=== PATIENT | male | born 1990 | race Caucasian/White ===

== ENCOUNTER 2017-12-14 20:44 | Emergency (ER) | payer MEDICAID ==
[~2017-12-14] VITALS: Ht 177.8 cm; Wt 61.4 kg
[~2017-12-14 20:44] MED LIST: CEPH-357 PO; CLIN-79 PO
[2017-12-14 21:12] VITALS: BP 145/97
== END 2017-12-14 23:24 | disposition left against medical advice (07) ==
LOC: ER 20:44
DX: K59.00 Constipation, unspecified (principal); Z53.21 Procedure and treatment not carried out due to patient leaving prior to being seen by health care provider

== ENCOUNTER 2017-12-15 15:57 | Emergency (ER) | payer MEDICAID ==
[~2017-12-15] VITALS: Ht 177.8 cm; Wt 90.0 kg
[2017-12-15 16:38] LABS: BASOPHILS % (AUTO) 0.4 % (0-1); EOSINOPHILS # (AUTO) 0.3 X10'3 (0-0.9); EOSINOPHILS % (AUTO) 3.1 % (0-6); HEMATOCRIT 43.4 % (42.0-52.0); LYMPHOCYTES # (AUTO) 1.8 X10'3 (1.1-4.8); LYMPHOCYTES % (AUTO) 19.2 % (21-51); MEAN CORPUSCULAR HEMOGLOBIN 31.3 PG (27.0-31.0); MEAN CORPUSCULAR HGB CONC 34.5 % (33.0-36.5); MEAN CORPUSCULAR VOLUME 90.8 FL (78-98); MEAN PLATELET VOLUME 6.4 FL (7.4-10.4); NEUTROPHILS # (AUTO) 6.2 X10'3 (1.8-7.7); NEUTROPHILS % (AUTO) 66.3 % (42-75); PLATELET COUNT 292 X10'3 (140-440); RED BLOOD COUNT 4.78 X10'6 (4.70-6.10); RED CELL DISTRIBUTION WIDTH 13.4 % (11.5-14.5); WHITE BLOOD COUNT 9.3 X10'3 (4.5-11.0)
[2017-12-15 16:53] LABS: ALANINE AMINOTRANSFERASE 36 U/L (12-78); ALBUMIN 3.8 G/DL (3.4-5.0); ALKALINE PHOSPHATASE 127 IU/L (46-116); ANION GAP 9 (8-16); ASPARTATE AMINO TRANSFERASE 21 U/L (10-37); BILIRUBIN,TOTAL 0.3 MG/DL (0.1-1.0); BLOOD UREA NITROGEN 14 MG/DL (7-18); BUN/CREATININE RATIO 17.5 (5.4-32.0); CALCIUM 9.4 MG/DL (8.5-10.1); CHLORIDE 102 MMOL/L (99-107); GLUCOSE 104 MG/DL (70-104); LIPASE 207 U/L (73-393); SODIUM 139 MMOL/L (135-145); TOTAL CARBON DIOXIDE 28.3 MMOL/L (24-32); TOTAL PROTEIN 7.7 G/DL (6.4-8.2); eGFR > 90 ML/MIN
[2017-12-15 18:06] VITALS: BP 136/97
== END 2017-12-15 18:09 | disposition left against medical advice (07) ==
LOC: ER 15:58
DX: K59.00 Constipation, unspecified (principal); F12.10 Cannabis abuse, uncomplicated; Z98.890 Other specified postprocedural states; Z79.899 Other long term (current) drug therapy
CPT/HCPCS: 36415; 80053; 83690; 85025; 99284

== ENCOUNTER 2018-04-02 17:41 | Emergency (ER) | payer MEDICAID ==
[~2018-04-02] VITALS: Ht 304.8 cm; Wt 42.0 kg
[~2018-04-02 17:41] MED LIST changes: -CLIN-79 PO; +CLIN150C8 PO
[2018-04-02 18:01] VITALS: BP 119/78
== END 2018-04-02 22:24 | disposition left against medical advice (07) ==
LOC: ER 17:42
DX: Z00.8 Encounter for other general examination (principal); Z53.21 Procedure and treatment not carried out due to patient leaving prior to being seen by health care provider

== ENCOUNTER 2018-07-28 23:52 | Inpatient (IN) | payer MEDICAID ==
[~2018-07-28] VITALS: Ht 177.8 cm; Wt 47.0 kg
[2018-07-29] VITALS (18 sets, daily range): BP systolic 95–149; BP diastolic 54–85
[2018-07-29] MEDS ORDERED: normal saline 1000ML IV soln IVB ONE (01:50)
[2018-07-29] MEDS ORDERED: morphine 4 MG/ML inj SYRINge IV ONE (01:50)
[2018-07-29] MEDS ORDERED: NO HOME MEDS (01:52)
[2018-07-29] MEDS ORDERED: acetaminophen 650mg rectal suppository RC PRN (01:55)
[2018-07-29] MEDS ORDERED: magnesium hydroxide 30ml (MOM) UD suspension PO PRN (01:55)
[2018-07-29] MEDS ORDERED: morphine 2 MG/ML inj. syringe IV PRN ×2 (01:55)
[2018-07-29] MEDS ORDERED: ondansetron/PF 4mg/2ml inj IV PRN (01:55)
[2018-07-29] MEDS ORDERED: HYDROmorphone 1 mg/ml syringe IV PRN ×2 (01:55)
[2018-07-29] MEDS ORDERED: metoclopramide 5 mg/ml inj IV PRN (01:55)
[2018-07-29] MEDS ORDERED: bisacodyl 10mg suppository rectal RC PRN (01:55)
[2018-07-29] MEDS ORDERED: mag hydrox/Alum hydrox/simeth 30ml oral suspension PO PRN (01:55)
[2018-07-29] MEDS ORDERED: diphenhydrAMINE 50 mg/ml inj IV PRN (01:55)
[2018-07-29] MEDS ORDERED: acetaminophen 325mg tablet PO PRN ×2 (01:55)
[2018-07-29] MEDS ORDERED: HYDROcodone/acetaminophen 10/325mg tab PO PRN (01:55)
[2018-07-29] MEDS ORDERED: diphenhydrAMINE 25mg capsule PO PRN (01:55)
[2018-07-29] MEDS ORDERED: HYDROcodone/acetaminophen 5mg/325mg tablet PO PRN (01:55)
[2018-07-29] MEDS: diatr meglu/diatrizoate 30ml oral sol.-(3 dose) bottle PO SCH ×3 (02:02→05:16)
[2018-07-29 02:08] LABS: ALANINE AMINOTRANSFERASE 25 U/L (12-78); ALBUMIN 3.8 G/DL (3.4-5.0); ALBUMIN/GLOBULIN RATIO 1.2 (1.1-1.5); ALKALINE PHOSPHATASE 118 IU/L (46-116); ANION GAP 7 (8-16); ASPARTATE AMINO TRANSFERASE 20 U/L (10-37); BILIRUBIN,TOTAL 0.6 MG/DL (0.1-1.0); BLOOD UREA NITROGEN 15 MG/DL (7-18); BUN/CREATININE RATIO 14.9 (5.4-32.0); CHLORIDE 102 MMOL/L (99-107); CREATININE 1.01 MG/DL (0.60-1.10); GLUCOSE 102 MG/DL (70-104); INR 1.1 INR; PARTIAL THROMBOPLASTIN TIME 29 SECONDS (22-32); POTASSIUM 3.3 MMOL/L (3.5-5.1); PROTHROMBIN TIME 11.8 SECONDS (9.0-12.0); SODIUM 138 MMOL/L (135-145); TOTAL CARBON DIOXIDE 28.7 MMOL/L (24-32); TOTAL PROTEIN 7.1 G/DL (6.4-8.2); eGFR 87 ML/MIN
[2018-07-29 02:09] LABS: BASOPHILS # (AUTO) 0.1 X10'3 (0-0.2); EOSINOPHILS # (AUTO) 0.4 X10'3 (0-0.9); EOSINOPHILS % (AUTO) 4.4 % (0-6); HEMATOCRIT 40.7 % (42.0-52.0); HEMOGLOBIN 13.6 g/dl (14.0-17.9); LYMPHOCYTES # (AUTO) 1.8 X10'3 (1.1-4.8); LYMPHOCYTES % (AUTO) 21.8 % (21-51); MEAN CORPUSCULAR HEMOGLOBIN 27.6 PG (27.0-31.0); MEAN CORPUSCULAR HGB CONC 33.5 % (33.0-36.5); MEAN CORPUSCULAR VOLUME 82.4 FL (78-98); MEAN PLATELET VOLUME 8.2 FL (7.4-10.4); MONOCYTES # (AUTO) 0.7 X10'3 (0-0.9); MONOCYTES % (AUTO) 8.7 % (2-12); NEUTROPHILS # (AUTO) 5.2 X10'3 (1.8-7.7); NEUTROPHILS % (AUTO) 64.1 % (42-75); PLATELET COUNT 297 X10'3 (140-440); RED BLOOD COUNT 4.93 X10'6 (4.70-6.10); RED CELL DISTRIBUTION WIDTH 16.1 % (11.5-14.5); WHITE BLOOD COUNT 8.2 X10'3 (4.5-11.0)
[2018-07-29 02:28] LABS: MAGNESIUM 2.1 MG/DL (1.5-2.4); PHOSPHORUS 3.9 MG/DL (2.3-4.5)
[2018-07-29] MEDS ORDERED: diatr meglu/diatrizoate 30ml oral sol.-(3 dose) bottle PO SCH (03:00)
[2018-07-29] MEDS: normal saline 1000ml 1,000 ML IV SCH ×4 (03:31→21:55)
[2018-07-29] MEDS ORDERED: iohexol 300mg/ml 100ml inj. ONE (05:44)
[2018-07-29] MEDS ORDERED: potassium Cl 20 mEq SR tablet PO PRN ×4 (06:25→07:00)
[2018-07-29] MEDS: docusate sod 100mg capsule PO SCH ×2 (06:44→20:00)
[2018-07-29] MEDS ORDERED: potassium Cl 40MEQ/NS 500ml 500 ML IV PRN ×2 (07:00)
[2018-07-29] MEDS ORDERED: magnesium Cl slow-release 64mg tablet PO PRN (07:00)
[2018-07-29] MEDS ORDERED: magnesium 4gm in 100ml NS 100 ML IV PRN (07:00)
[2018-07-29] MEDS: pantoprazole 40 MG vial IV SCH (07:26)
[2018-07-29] MEDS ORDERED: HYDROmorphone 1 mg/ml syringe IM ONE (09:25)
[2018-07-29] MEDS ORDERED: ketorolac trometh. 30mg/ml inj. IV ONE (09:25)
[2018-07-29] MEDS ORDERED: HYDROmorphone 1 mg/ml syringe IV ONE (09:35)
[2018-07-29] MEDS ORDERED: gentamicin 40 MG/1 ML inj ONE (11:05)
[2018-07-29] MEDS ORDERED: clindamycin phosphate 150mg/ml inj. ONE (11:05)
[2018-07-29] MEDS ORDERED: propofol 10mg/ml 20ml vial IV ONE (12:34)
[2018-07-29] MEDS ORDERED: sevoflurane 250ml liquid IH ONE (12:34)
[2018-07-29] MEDS ORDERED: fentaNYL /PF 50mcg/ml 5ml ampule ONE (12:36)
[2018-07-29] MEDS ORDERED: midazolam 2 mg/2 ml injection ONE (12:36)
[2018-07-29] MEDS ORDERED: rocuronium 10mg/ml inj IV ONE ×2 (13:13)
[2018-07-29] MEDS ORDERED: LIDOcaine 2% (20mg/ml) 5ml vial ONE (13:13)
[2018-07-29] MEDS ORDERED: temazepam 15mg capsule PO PRN (21:00)
[2018-07-29 22:12] LABS: CLARITY,URINE CLEAR (Clear); COLOR,URINE YELLOW (Yellow); GLUCOSE, URINE NEGATIVE (Neg); KETONES,URINE >=80 mg/dl (Neg); LEUKOCYTE ESTERASE ,URINE NEGATIVE (Neg); NITRITES, URINE NEGATIVE (Neg); OCCULT BLOOD,URINE NEGATIVE (Neg); PROTEIN,URINE NEGATIVE (Neg); UROBILINOGEN,URINE 0.2 E.U/dL (0.2-1.0)
[2018-07-29 22:13] LABS: UA COLLECTION TYPE CLN CATCH MIDSTREAM
[2018-07-30] VITALS: BP 90/48
[2018-07-30 04:00] VITALS: BP 93/53
[2018-07-30 05:09] LABS: BASOPHILS % (AUTO) 0.3 % (0-1); EOSINOPHILS # (AUTO) 0.3 X10'3 (0-0.9); EOSINOPHILS % (AUTO) 4.3 % (0-6); HEMOGLOBIN 12.4 g/dl (14.0-17.9); LYMPHOCYTES % (AUTO) 13.7 % (21-51); MEAN CORPUSCULAR HEMOGLOBIN 27.2 PG (27.0-31.0); MEAN CORPUSCULAR HGB CONC 32.5 % (33.0-36.5); MEAN CORPUSCULAR VOLUME 83.8 FL (78-98); MEAN PLATELET VOLUME 7.9 FL (7.4-10.4); MONOCYTES # (AUTO) 0.6 X10'3 (0-0.9); MONOCYTES % (AUTO) 8.5 % (2-12); NEUTROPHILS # (AUTO) 5.6 X10'3 (1.8-7.7); NEUTROPHILS % (AUTO) 73.2 % (42-75); PLATELET COUNT 288 X10'3 (140-440); RED BLOOD COUNT 4.54 X10'6 (4.70-6.10); RED CELL DISTRIBUTION WIDTH 17.4 % (11.5-14.5); WHITE BLOOD COUNT 7.6 X10'3 (4.5-11.0)
[2018-07-30 05:31] LABS: ALANINE AMINOTRANSFERASE 17 U/L (12-78); ALBUMIN 2.9 G/DL (3.4-5.0); ALBUMIN/GLOBULIN RATIO 1.1 (1.1-1.5); ALKALINE PHOSPHATASE 96 IU/L (46-116); ANION GAP 9 (8-16); ASPARTATE AMINO TRANSFERASE 12 U/L (10-37); BILIRUBIN,TOTAL 0.8 MG/DL (0.1-1.0); BLOOD UREA NITROGEN 8 MG/DL (7-18); BUN/CREATININE RATIO 9.9 (5.4-32.0); CALCIUM 7.6 MG/DL (8.5-10.1); CHLORIDE 104 MMOL/L (99-107); CREATININE 0.81 MG/DL (0.60-1.10); GLUCOSE 114 MG/DL (70-104); POTASSIUM 3.8 MMOL/L (3.5-5.1); SODIUM 137 MMOL/L (135-145); TOTAL CARBON DIOXIDE 24.4 MMOL/L (24-32); TOTAL PROTEIN 5.6 G/DL (6.4-8.2); eGFR > 90 ML/MIN
[2018-07-30 07:26] VITALS: BP 95/59
[2018-07-30] MEDS: normal saline 1000ml 1,000 ML IV SCH (07:55)
[2018-07-30] MEDS: docusate sod 100mg capsule PO SCH (07:56)
[2018-07-30] MEDS: pantoprazole 40 MG vial IV SCH (07:57)
[2018-07-30 12:04] VITALS: BP 79/46
== END 2018-07-30 13:00 | disposition home or self-care (01) | DRG 252 ==
LOC: ER 23:53 → ED HOLD 07-29 01:55 → EDBEDREQ 07-29 02:41 → SUR 3N 07-29 03:00 → PACU 07-29 12:20 → SUR 3N 07-29 14:40
PROVIDERS: ADMIT Family Medicine; ATTEND Family Medicine
PROC: BW211ZZ Computerized Tomography (CT Scan) of Abdomen and Pelvis using Low Osmolar Contrast (ICD-10-PCS; 2018-07-29)
PROC: 0DS Gastrointestinal System, Reposition (ICD-10-PCS; principal; 2018-07-29 12:34)
DX: K94.03 Colostomy malfunction (principal); Q43.1 Hirschsprung's disease; E86.0 Dehydration; E87.6 Hypokalemia; F12.90 Cannabis use, unspecified, uncomplicated; F17.210 Nicotine dependence, cigarettes, uncomplicated; K94.09 Other complications of colostomy; M19.90 Unspecified osteoarthritis, unspecified site; R10.0 Acute abdomen
CPT/HCPCS: 36415; 74177; 80053; 81003; 83735; 83880; 84100; 85025; 85610; 85730; 87070; 99285; A4421; A6402; A7000; C9113; J1170; J1580; J1885; J2001; J2250; J2405; J2704; J2765; J3010; J3480; J3490; J7030; J7120; Q9963; Q9967

== ENCOUNTER 2019-05-06 06:28 | Inpatient (IN) | payer MEDICAID ==
[~2019-05-06] VITALS: Ht 177.8 cm; Wt 59.0 kg
[2019-05-06] MEDS: morphine 2 MG/ML inj. syringe IV PRN ×11 (05:00→21:37)
[2019-05-06] MEDS ORDERED: normal saline 1000ML IV soln IVB ONE (06:50)
[2019-05-06] MEDS ORDERED: pantoprazole 40 MG vial IV ONE (06:50)
[2019-05-06] MEDS ORDERED: ondansetron/PF 4mg/2ml inj IV ONE (06:50)
[2019-05-06] MEDS ORDERED: ESOMEPRAZOLE 40 MG VIAL IV ONE (06:55)
[2019-05-06 07:00] LABS: BASOPHILS % (AUTO) 0.3 % (0-1); EOSINOPHILS % (AUTO) 0 % (0-6); HEMATOCRIT 51.3 % (42.0-52.0); HEMOGLOBIN 17.5 g/dl (14.0-17.9); LYMPHOCYTES # (AUTO) 0.7 X10'3 (1.1-4.8); LYMPHOCYTES % (AUTO) 4.5 % (21-51); MEAN CORPUSCULAR HEMOGLOBIN 30.2 PG (27.0-31.0); MEAN CORPUSCULAR HGB CONC 34.2 g/dL (33.0-36.5); MEAN CORPUSCULAR VOLUME 88.5 FL (78-98); MEAN PLATELET VOLUME 7.3 FL (7.4-10.4); MONOCYTES # (AUTO) 0.5 X10'3 (0-0.9); MONOCYTES % (AUTO) 3.3 % (2-12); NEUTROPHILS % (AUTO) 91.9 % (42-75); PLATELET COUNT 288 X10'3 (140-440); RED CELL DISTRIBUTION WIDTH 14.3 % (11.5-14.5); WHITE BLOOD COUNT 16.4 X10'3 (4.5-11.0)
[2019-05-06 07:16] LABS: ALANINE AMINOTRANSFERASE 27 U/L (12-78); ALBUMIN 4.8 G/DL (3.4-5.0); ALBUMIN/GLOBULIN RATIO 1.2 (1.1-1.5); ALKALINE PHOSPHATASE 127 IU/L (46-116); ANION GAP 16 (8-16); ASPARTATE AMINO TRANSFERASE 15 U/L (10-37); BILIRUBIN,TOTAL 1.1 MG/DL (0.1-1.0); BLOOD UREA NITROGEN 25 MG/DL (7-18); BUN/CREATININE RATIO 20.8 (5.4-32.0); CALCIUM 10.7 MG/DL (8.5-10.1); CHLORIDE 103 MMOL/L (99-107); GLUCOSE 134 MG/DL (70-104); LIPASE 92 U/L (73-393); POTASSIUM 3.9 MMOL/L (3.5-5.1); SODIUM 143 MMOL/L (135-145); TOTAL CARBON DIOXIDE 23.6 MMOL/L (24-32); TOTAL PROTEIN 8.7 G/DL (6.4-8.2); eGFR 71 ML/MIN
--- NOTE | 2019-05-06 07:38 | NUR ---
pt resting more comfortably on the gurney.
[2019-05-06] MEDS: diatr meglu/diatrizoate 30ml oral sol.-(3 dose) bottle PO SCH ×3 (07:44→09:50)
[2019-05-06] MEDS ORDERED: iohexol 300mg/ml 100ml inj. ONE (09:46)
[2019-05-06] MEDS ORDERED: ondansetron/PF 4mg/2ml inj IV PRN (10:55)
[2019-05-06] MEDS ORDERED: mag hydrox/Alum hydrox/simeth 30ml oral suspension PO PRN (10:55)
[2019-05-06] MEDS ORDERED: acetaminophen 325mg tablet PO PRN (10:55)
[2019-05-06] MEDS ORDERED: magnesium hydroxide 30ml (MOM) UD suspension PO PRN (10:55)
[2019-05-06] MEDS: normal saline 1000ml 1,000 ML IV SCH ×2 (11:08→20:53)
[2019-05-06] MEDS ORDERED: NO HOME MEDS (11:22)
--- NOTE | 2019-05-06 12:06 | NUR ---
ATTEMPTED TO CALL REPORT. THE NURSE IS ON LUNCH AND WILL BE BACK IN 10 MIN.
[2019-05-06 17:15] VITALS: BP 145/87
--- NOTE | 2019-05-06 18:36 | NUR ---
Patient in room [facility]. I have received report from Ramila HASSAN and had the opportunity to ask questions and assume patient care.
[2019-05-06 19:00] VITALS: BP 136/93
[2019-05-07] VITALS (18 sets, daily range): BP systolic 108–151; BP diastolic 61–98
[2019-05-07] MEDS: piperacillin/tazo 3.375gm/50ml 50 ML IV SCH ×4 (00:25→23:24)
[2019-05-07] MEDS: morphine 2 MG/ML inj. syringe IV PRN ×2 (03:49→08:11)
[2019-05-07 06:25] LABS: ALBUMIN 3.9 G/DL (3.4-5.0); ANION GAP 10 (8-16); BLOOD UREA NITROGEN 22 MG/DL (7-18); BUN/CREATININE RATIO 23.2 (5.4-32.0); CALCIUM 9.3 MG/DL (8.5-10.1); CHLORIDE 103 MMOL/L (99-107); CREATININE 0.95 MG/DL (0.60-1.10); GLUCOSE 107 MG/DL (70-104); POTASSIUM 3.7 MMOL/L (3.5-5.1); SODIUM 142 MMOL/L (135-145); TOTAL CARBON DIOXIDE 29.1 MMOL/L (24-32); eGFR > 90 ML/MIN
--- NOTE | 2019-05-07 06:25 | NUR ---
Patient in room [facility]. I have received report from SONYA Ayala and had the opportunity to ask questions and assume patient care.
[2019-05-07 06:29] LABS: BASOPHILS % (AUTO) 0.2 % (0-1); EOSINOPHILS % (AUTO) 0.4 % (0-6); HEMATOCRIT 46.1 % (42.0-52.0); HEMOGLOBIN 15.9 g/dl (14.0-17.9); LYMPHOCYTES # (AUTO) 0.9 X10'3 (1.1-4.8); MEAN CORPUSCULAR HEMOGLOBIN 30.5 PG (27.0-31.0); MEAN CORPUSCULAR HGB CONC 34.5 g/dL (33.0-36.5); MEAN CORPUSCULAR VOLUME 88.2 FL (78-98); MEAN PLATELET VOLUME 8.3 FL (7.4-10.4); MONOCYTES # (AUTO) 1.1 X10'3 (0-0.9); MONOCYTES % (AUTO) 13.7 % (2-12); NEUTROPHILS # (AUTO) 6.1 X10'3 (1.8-7.7); NEUTROPHILS % (AUTO) 74.7 % (42-75); PLATELET COUNT 252 X10'3 (140-440); RED BLOOD COUNT 5.23 X10'6 (4.70-6.10); RED CELL DISTRIBUTION WIDTH 14.2 % (11.5-14.5); WHITE BLOOD COUNT 8.2 X10'3 (4.5-11.0)
[2019-05-07] MEDS: normal saline 1000ml 1,000 ML IV SCH ×3 (08:08→23:31)
--- NOTE | 2019-05-07 13:45 | NUR ---
Patient to OR and taken from unit via bed with x1 staff. Report called to Maximo in recovery. Patient alert and oriented at this time. Tele chambers called and notified.
[2019-05-07] MEDS ORDERED: HYDR-4353 PO (14:07)
--- NOTE | 2019-05-07 14:08 | NUR ---
Noted that pt with BMI on the lower end of appropriate at 18.7. Current wt is unreliable as it is pt stated. Pt with no decrease in muscle strength and no edema. No malnutrition at this time. Will continue to follow. Addendum: 05/07/19 at [address] Amended: Links added.
[2019-05-07] MEDS ORDERED: ringers solution, lacted 1,000 ML IV SCH ×2 (14:13→16:48)
[2019-05-07] MEDS ORDERED: meperidine/PF 25mg/ml syringe IV PRN ×3 (14:15)
[2019-05-07] MEDS ORDERED: morphine 4 MG/ML inj SYRINge IV PRN ×3 (14:15→16:50)
[2019-05-07] MEDS ORDERED: proCHLORperazine 10 MG/2 ml inj IV PRN (14:15)
[2019-05-07] MEDS ORDERED: ondansetron/PF 4mg/2ml inj IV PRN ×2 (14:15→16:50)
[2019-05-07] MEDS ORDERED: sevoflurane 250ml liquid IH ONE (15:10)
[2019-05-07] MEDS ORDERED: fentaNYL /PF 50mcg/ml 5ml ampule ONE (15:18)
[2019-05-07] MEDS ORDERED: midazolam 2 mg/2 ml injection ONE (15:18)
[2019-05-07] MEDS ORDERED: LIDOcaine 2% 10ml TOPICAL JELLY (Urojet) ONE (15:57)
[2019-05-07] MEDS ORDERED: ceFOXitin 2 GM ADDvantage bag 100 ML IV ONE (16:14)
[2019-05-07] MEDS ORDERED: ceFOXitin sod/dextrose 2g/50ml 50 ML IV ONE ×2 (16:17→18:25)
[2019-05-07] MEDS ORDERED: BUPIVAcaine/PF 2.5 mg/ml (0.25%) 30ml vial ONE (16:19)
[2019-05-07] MEDS ORDERED: sugammadex 200mg/2ml injection IV ONE (16:25)
[2019-05-07] MEDS ORDERED: rocuronium 10mg/ml inj IV ONE (16:28)
[2019-05-07] MEDS ORDERED: glycopyrrolate 0.2mg/ml inj ONE (16:28)
[2019-05-07] MEDS ORDERED: neostigmine methylsulfate 1 MG/ML 10ml vial ONE (16:28)
[2019-05-07] MEDS ORDERED: ondansetron/PF 4mg/2ml inj ONE (16:28)
[2019-05-07] MEDS ORDERED: LIDOcaine 2% (20mg/ml) 5ml vial ONE (16:28)
[2019-05-07] MEDS ORDERED: propofol inj 20 ML IV ONE (16:28)
[2019-05-07] MEDS ORDERED: meperidine/PF 50mg/ml syringe ONE (16:31)
--- NOTE | 2019-05-07 16:43 | NUR ---
Received from OR via [facility], accompanied by Anesthesiologist ERIN and report given by Anesthesiolgist. PATIENT WITH 20G PIV IN LEFT UE RUNNING LR AT 100. COLOSTOMY PRESENT TO ABDOMEN, MIDLINE DRESSING PRESENT. SPOTTED WITH BLOOD BUT CONTAINED WITHIN DRESSING. 10L MASK ON WITH 100% SATURATIONS. VSS. FIELD START TO LEFT AC IS SL. NG TUBE IN PLACE TO LEFT NARE. Addendum: 05/07/19 at 1700 by Maximo Almanza RN, RN Amended: Links added.
[2019-05-07] MEDS ORDERED: HYDROmorphone inj. 0.5 MG/0.5 ML DISP.SYRIN IV PRN ×2 (16:50)
[2019-05-07] MEDS: morphine 4 MG/ML inj SYRINge IV PRN ×2 (17:16→17:23)
--- NOTE | 2019-05-07 17:33 | NUR ---
ALL CRITERIA FOR TRANSFER TO THE FLOOR HAS BEEN ACHIEVED. VSS. BED LOW, CALL LIGHT AND VS. SET IN PLACE. RN PRESENT TO ACCEPT CARE. PATIENT RESTING COMFORTABLY IN BED. BELONGINGS SENT WITH PATIENT. DRESSINGS CDI. PETTY PETERSEN TOOK PATIENT TO ROOM. REPORT CALLED AND ALL QUESTIONS ANSWERED. DRESSINGS TO ABDOMEN STILL CDI. Addendum: 05/07/19 at 1749 by Maximo Tolentino - SONYA RN Amended: Links added.
--- NOTE | 2019-05-07 18:41 | NUR ---
Problems reprioritized. Patient report given, questions answered & plan of care reviewed with SONYA Rollins.
--- NOTE | 2019-05-07 18:42 | NUR ---
Patient in room [facility]. I have received report from JAIR Schneider and had the opportunity to ask questions and assume patient care.
--- NOTE | 2019-05-07 19:24 | NUR ---
Spoke with Dr. Landry pt has NG post-op no order said to remove. Communicated to pts nurse Ayo
[2019-05-07] MEDS ORDERED: HYDROmorphone/NS 1 mg/ml CADD 50 ML IV SCH (19:25)
[2019-05-07] MEDS ORDERED: CADD PCA waste documentation MC PRN (19:25)
[2019-05-07] MEDS ORDERED: naloxone 0.4 mg/ml inj IV PRN (19:25)
[2019-05-07] MEDS: HYDROmorphone/NS 1 mg/ml CADD 50 ML IV SCH ×2 (19:57→23:00)
[2019-05-08] VITALS: BP 135/98
[2019-05-08] MEDS: HYDROmorphone/NS 1 mg/ml CADD 50 ML IV SCH ×12 (01:00→23:00)
--- NOTE | 2019-05-08 06:34 | NUR ---
Problems reprioritized. Patient report given, questions answered & plan of care reviewed with SONYA Davenport.
[2019-05-08 07:00] VITALS: BP 139/94
[2019-05-08 08:07] LABS: BASOPHILS % (AUTO) 0.2 % (0-1); EOSINOPHILS # (AUTO) 0.1 X10'3 (0-0.9); EOSINOPHILS % (AUTO) 1.3 % (0-6); HEMATOCRIT 45.1 % (42.0-52.0); HEMOGLOBIN 15.1 g/dl (14.0-17.9); LYMPHOCYTES # (AUTO) 0.4 X10'3 (1.1-4.8); LYMPHOCYTES % (AUTO) 8.2 % (21-51); MEAN CORPUSCULAR HEMOGLOBIN 30.3 PG (27.0-31.0); MEAN CORPUSCULAR HGB CONC 33.6 g/dL (33.0-36.5); MEAN CORPUSCULAR VOLUME 90.4 FL (78-98); MEAN PLATELET VOLUME 7.6 FL (7.4-10.4); MONOCYTES # (AUTO) 0.4 X10'3 (0-0.9); MONOCYTES % (AUTO) 8.4 % (2-12); NEUTROPHILS # (AUTO) 4.2 X10'3 (1.8-7.7); NEUTROPHILS % (AUTO) 81.9 % (42-75); PLATELET COUNT 237 X10'3 (140-440); RED BLOOD COUNT 4.99 X10'6 (4.70-6.10); RED CELL DISTRIBUTION WIDTH 14.4 % (11.5-14.5); WHITE BLOOD COUNT 5.1 X10'3 (4.5-11.0)
[2019-05-08 08:13] LABS: ALBUMIN 3.3 G/DL (3.4-5.0); ANION GAP 10 (8-16); BLOOD UREA NITROGEN 18 MG/DL (7-18); CALCIUM 8.5 MG/DL (8.5-10.1); CHLORIDE 105 MMOL/L (99-107); CREATININE 0.82 MG/DL (0.60-1.10); GLUCOSE 117 MG/DL (70-104); POTASSIUM 3.8 MMOL/L (3.5-5.1); SODIUM 140 MMOL/L (135-145); TOTAL CARBON DIOXIDE 25.5 MMOL/L (24-32); eGFR > 90 ML/MIN
[2019-05-08] MEDS: piperacillin/tazo 3.375gm/50ml 50 ML IV SCH ×2 (08:26→17:00)
[2019-05-08] MEDS: heparin, porcine 5000 units/ml vial SQ SCH ×2 (08:29→20:45)
[2019-05-08] MEDS: normal saline 1000ml 1,000 ML IV SCH ×2 (08:37→16:59)
[2019-05-08 11:00] VITALS: BP 133/85
[2019-05-08] MEDS ORDERED: ketorolac trometh. 30mg/ml inj. IV SCH (14:00)
[2019-05-08] MEDS: ketorolac trometh. 30mg/ml inj. IV PRN (17:01)
--- NOTE | 2019-05-08 18:34 | NUR ---
Problems reprioritized. Patient report given, questions answered & plan of care reviewed with PRUDENCE RN.
--- NOTE | 2019-05-08 18:50 | NUR ---
Patient in room [facility]. I have received report from Lindsey HASSAN and had the opportunity to ask questions and assume patient care.
[2019-05-08 19:00] VITALS: BP 135/65
[2019-05-08] MEDS: lactobacillus rhamnosus 10,000 MMU CELLS/CAPSULE PO SCH (20:45)
[2019-05-09] VITALS: BP 119/69
[2019-05-09] MEDS: piperacillin/tazo 3.375gm/50ml 50 ML IV SCH ×2 (00:25→07:35)
[2019-05-09] MEDS: normal saline 1000ml 1,000 ML IV SCH ×3 (00:32→22:28)
[2019-05-09] MEDS: HYDROmorphone/NS 1 mg/ml CADD 50 ML IV SCH ×7 (01:00→13:00)
[2019-05-09 05:41] LABS: ALBUMIN 2.6 G/DL (3.4-5.0); ANION GAP 5 (8-16); BLOOD UREA NITROGEN 13 MG/DL (7-18); BUN/CREATININE RATIO 19.4 (5.4-32.0); CALCIUM 8.7 MG/DL (8.5-10.1); CHLORIDE 101 MMOL/L (99-107); CREATININE 0.67 MG/DL (0.60-1.10); GLUCOSE 83 MG/DL (70-104); POTASSIUM 3.6 MMOL/L (3.5-5.1); SODIUM 134 MMOL/L (135-145); TOTAL CARBON DIOXIDE 27.8 MMOL/L (24-32); eGFR > 90 ML/MIN
[2019-05-09 05:48] LABS: BASOPHILS % (AUTO) 0.4 % (0-1); EOSINOPHILS # (AUTO) 0.4 X10'3 (0-0.9); EOSINOPHILS % (AUTO) 6.2 % (0-6); HEMATOCRIT 39.6 % (42.0-52.0); HEMOGLOBIN 13.4 g/dl (14.0-17.9); LYMPHOCYTES # (AUTO) 1.5 X10'3 (1.1-4.8); LYMPHOCYTES % (AUTO) 25.6 % (21-51); MEAN CORPUSCULAR HEMOGLOBIN 30.5 PG (27.0-31.0); MEAN CORPUSCULAR HGB CONC 33.9 g/dL (33.0-36.5); MEAN PLATELET VOLUME 7.9 FL (7.4-10.4); MONOCYTES # (AUTO) 0.9 X10'3 (0-0.9); MONOCYTES % (AUTO) 14.9 % (2-12); NEUTROPHILS # (AUTO) 3.1 X10'3 (1.8-7.7); NEUTROPHILS % (AUTO) 52.9 % (42-75); PLATELET COUNT 200 X10'3 (140-440); RED CELL DISTRIBUTION WIDTH 13.9 % (11.5-14.5); WHITE BLOOD COUNT 5.8 X10'3 (4.5-11.0)
--- NOTE | 2019-05-09 06:27 | NUR ---
Problems reprioritized. Patient report given, questions answered & plan of care reviewed with Lindsey HASSAN.
[2019-05-09 07:00] VITALS: BP 135/81
[2019-05-09] MEDS: ketorolac trometh. 30mg/ml inj. IV PRN (07:29)
[2019-05-09] MEDS: lactobacillus rhamnosus 10,000 MMU CELLS/CAPSULE PO SCH ×2 (07:29→20:11)
[2019-05-09] MEDS: heparin, porcine 5000 units/ml vial SQ SCH ×2 (07:29→20:11)
[2019-05-09 11:00] VITALS: BP 117/76
[2019-05-09] MEDS: HYDROcodone/acetaminophen 10/325mg tab PO PRN ×2 (15:26→20:13)
[2019-05-09] MEDS: morphine 2 MG/ML inj. syringe IV PRN (17:50)
--- NOTE | 2019-05-09 18:15 | NUR ---
Received report from SONYA Portillo. Patient is awake and alert on room air, in no apparent distress. Call light and items of frequent use within reach. Will continue to monitor.
--- NOTE | 2019-05-09 18:22 | NUR ---
Problems reprioritized. Patient report given, questions answered & plan of care reviewed with NYLA HASSAN.
[2019-05-09 20:00] VITALS: BP 141/87
--- NOTE | 2019-05-09 23:48 | NUR ---
Problems reprioritized. Patient report given, questions answered & plan of care reviewed with SONYA George.
--- NOTE | 2019-05-09 23:55 | NUR ---
Assumed care from Shannan HASSAN. Agree with previous assessment.Patient currently sleeping with his eyes closed and respirations steady.
[2019-05-10] VITALS: BP 136/82
[2019-05-10] MEDS: morphine 2 MG/ML inj. syringe IV PRN (01:15)
[2019-05-10 05:27] LABS: BASOPHILS % (AUTO) 0.4 % (0-1); EOSINOPHILS # (AUTO) 0.4 X10'3 (0-0.9); EOSINOPHILS % (AUTO) 5.4 % (0-6); HEMATOCRIT 40.3 % (42.0-52.0); HEMOGLOBIN 13.7 g/dl (14.0-17.9); LYMPHOCYTES # (AUTO) 1.6 X10'3 (1.1-4.8); LYMPHOCYTES % (AUTO) 22.8 % (21-51); MEAN CORPUSCULAR HEMOGLOBIN 30.1 PG (27.0-31.0); MEAN CORPUSCULAR HGB CONC 33.9 g/dL (33.0-36.5); MEAN CORPUSCULAR VOLUME 88.9 FL (78-98); MEAN PLATELET VOLUME 7.6 FL (7.4-10.4); MONOCYTES # (AUTO) 0.8 X10'3 (0-0.9); MONOCYTES % (AUTO) 11.8 % (2-12); NEUTROPHILS # (AUTO) 4.3 X10'3 (1.8-7.7); NEUTROPHILS % (AUTO) 59.6 % (42-75); PLATELET COUNT 235 X10'3 (140-440); RED BLOOD COUNT 4.54 X10'6 (4.70-6.10); RED CELL DISTRIBUTION WIDTH 13.5 % (11.5-14.5); WHITE BLOOD COUNT 7.1 X10'3 (4.5-11.0)
[2019-05-10 05:28] LABS: ALBUMIN 2.6 G/DL (3.4-5.0); ANION GAP 9 (8-16); BLOOD UREA NITROGEN 7 MG/DL (7-18); BUN/CREATININE RATIO 12.7 (5.4-32.0); CALCIUM 8.3 MG/DL (8.5-10.1); CHLORIDE 101 MMOL/L (99-107); CREATININE 0.55 MG/DL (0.60-1.10); GLUCOSE 90 MG/DL (70-104); POTASSIUM 3.4 MMOL/L (3.5-5.1); SODIUM 135 MMOL/L (135-145); TOTAL CARBON DIOXIDE 24.6 MMOL/L (24-32); eGFR > 90 ML/MIN
--- NOTE | 2019-05-10 06:15 | NUR ---
Patient in room [facility]. I have received report from SONYA George and had the opportunity to ask questions and assume patient care.
--- NOTE | 2019-05-10 06:20 | NUR ---
Problems reprioritized. Patient report given, questions answered & plan of care reviewed with Alessia.
[2019-05-10 07:30] VITALS: BP 142/78
[2019-05-10] MEDS: lactobacillus rhamnosus 10,000 MMU CELLS/CAPSULE PO SCH (08:30)
[2019-05-10] MEDS: heparin, porcine 5000 units/ml vial SQ SCH (08:33)
[2019-05-10] MEDS: HYDROcodone/acetaminophen 10/325mg tab PO PRN (08:33)
[2019-05-10] MEDS: normal saline 1000ml 1,000 ML IV SCH (08:35)
[2019-05-10 11:34] VITALS: BP 129/82
[2019-05-10] MEDS ORDERED: potassium Cl 20 mEq SR tablet PO STA (11:39)
--- NOTE | 2019-05-10 15:30 | NUR ---
Patient voided 200ml at 1400; about an hour and a half after the ariza came out. He then voided another 150ml at 1500. I had Anne bladder scan him just to be sure that he wasn't retaining more before he goes home. He only had 105ml in his bladder; he doesn't feel distended at all.
--- NOTE | 2019-05-10 16:15 | NUR ---
Patient discharged. PIV removed: cath tip intact. Education given and patient verbalized understanding. Patient received [place] via bedside delivery from [facility] through [facility]. Patient was wheeled down by staff.
== END 2019-05-10 16:16 | disposition home or self-care (01) | DRG 224 ==
LOC: ER 06:29 → SUR 3N 12:54 → CMPBEDREQ 19:39
PROVIDERS: ADMIT Family Medicine; ATTEND Family Medicine
PROC: BW211ZZ Computerized Tomography (CT Scan) of Abdomen and Pelvis using Low Osmolar Contrast (ICD-10-PCS; principal; 2019-05-06)
PROC: 0D9670Z Drainage of Stomach with Drainage Device, Via Natural or Artificial Opening (ICD-10-PCS; 2019-05-06)
PROC: 0DN80ZZ Release Small Intestine, Open Approach (ICD-10-PCS; 2019-05-07)
DX: K56.50 Intestinal adhesions [bands], unspecified as to partial versus complete obstruction (principal); D72.829 Elevated white blood cell count, unspecified; E86.0 Dehydration; F12.90 Cannabis use, unspecified, uncomplicated; F15.90 Other stimulant use, unspecified, uncomplicated; F17.210 Nicotine dependence, cigarettes, uncomplicated; M19.90 Unspecified osteoarthritis, unspecified site; N28.9 Disorder of kidney and ureter, unspecified; Z90.49 Acquired absence of other specified parts of digestive tract; Z93.2 Ileostomy status; Z71.51 Drug abuse counseling and surveillance of drug abuser; Z71.6 Tobacco abuse counseling
CPT/HCPCS: 36415; 74018; 74177; 80048; 80053; 82948; 83690; 83735; 85025; 87081; 93005; 93306; 96361; 96374; 96375; 99285; A4338; A4340; A4618; A7000; C1758; C1769; C9399; G0378; J0694; J1170; J1644; J1885; J2001; J2175; J2250; J2270; J2405; J2543; J2704; J2710; J3010; J3490; J7030; J7120; Q9963; Q9967

== ENCOUNTER 2019-09-28 19:27 | Emergency (ER) | payer MEDICAID ==
[~2019-09-28] VITALS: Ht 177.8 cm; Wt 56.8 kg
[~2019-09-28 19:27] MED LIST changes: -CEPH-357 PO; -CLIN150C8 PO; +NO HOME MEDS
[2019-09-28] MEDS ORDERED: normal saline 1000ML IV soln IVB ONE (20:30)
[2019-09-28 20:57] LABS: BASOPHILS # (AUTO) 0.1 X10'3 (0-0.2); BASOPHILS % (AUTO) 0.8 % (0-1); EOSINOPHILS # (AUTO) 0.3 X10'3 (0-0.9); EOSINOPHILS % (AUTO) 3.9 % (0-6); HEMATOCRIT 45.5 % (42.0-52.0); HEMOGLOBIN 15.8 g/dl (14.0-17.9); LYMPHOCYTES # (AUTO) 2.4 X10'3 (1.1-4.8); LYMPHOCYTES % (AUTO) 26.6 % (21-51); MEAN CORPUSCULAR HEMOGLOBIN 30.9 PG (27.0-31.0); MEAN CORPUSCULAR HGB CONC 34.8 g/dL (33.0-36.5); MEAN CORPUSCULAR VOLUME 88.8 FL (78-98); MEAN PLATELET VOLUME 6.4 FL (7.4-10.4); MONOCYTES % (AUTO) 11.5 % (2-12); NEUTROPHILS # (AUTO) 5.1 X10'3 (1.8-7.7); NEUTROPHILS % (AUTO) 57.2 % (42-75); PLATELET COUNT 270 X10'3 (140-440); RED BLOOD COUNT 5.13 X10'6 (4.70-6.10); RED CELL DISTRIBUTION WIDTH 14.1 % (11.5-14.5); WHITE BLOOD COUNT 8.9 X10'3 (4.5-11.0)
[2019-09-28 21:06] LABS: ALANINE AMINOTRANSFERASE 31 U/L (12-78); ALBUMIN 4.4 G/DL (3.4-5.0); ALBUMIN/GLOBULIN RATIO 1.3 (1.1-1.5); ALKALINE PHOSPHATASE 120 IU/L (46-116); ANION GAP 9 (8-16); ASPARTATE AMINO TRANSFERASE 29 U/L (10-37); BILIRUBIN,TOTAL 0.9 MG/DL (0.1-1.0); BLOOD UREA NITROGEN 21 MG/DL (7-18); CHLORIDE 103 MMOL/L (99-107); CREATININE 1.05 MG/DL (0.60-1.10); GLUCOSE 83 MG/DL (70-104); POTASSIUM 3.6 MMOL/L (3.5-5.1); SODIUM 140 MMOL/L (135-145); TOTAL CARBON DIOXIDE 27.8 MMOL/L (24-32); TOTAL PROTEIN 7.8 G/DL (6.4-8.2); eGFR 82 ML/MIN
[2019-09-28 21:45] VITALS: BP 121/58
== END 2019-09-28 21:46 | disposition home or self-care (01) ==
LOC: ER 19:28
DX: R10.9 Unspecified abdominal pain (principal); F12.90 Cannabis use, unspecified, uncomplicated; F15.90 Other stimulant use, unspecified, uncomplicated; M19.90 Unspecified osteoarthritis, unspecified site; Z93.3 Colostomy status; Z98.890 Other specified postprocedural states
CPT/HCPCS: 36415; 80053; 85025; 99283; J7030

== ENCOUNTER 2021-04-01 22:57 | Emergency (ER) | payer MEDICAID ==
[~2021-04-01] VITALS: Ht 177.8 cm; Wt 57.0 kg
[2021-04-01 23:00] VITALS: BP 135/95
== END 2021-04-02 01:05 | disposition home or self-care (01) ==
LOC: ER 22:57
DX: R60.0 Localized edema (principal); F19.20 Other psychoactive substance dependence, uncomplicated; M19.90 Unspecified osteoarthritis, unspecified site; F12.90 Cannabis use, unspecified, uncomplicated; F15.90 Other stimulant use, unspecified, uncomplicated; Z72.89 Other problems related to lifestyle; Z98.890 Other specified postprocedural states
CPT/HCPCS: 99281

== ENCOUNTER 2021-08-20 04:55 | Emergency (ER) | payer MEDICAID ==
[~2021-08-20] VITALS: Ht 177.8 cm; Wt 62.0 kg
[2021-08-20 05:01] VITALS: BP 126/85
[2021-08-20] MEDS ORDERED: AMOX500C2 PO (05:05)
[2021-08-20] MEDS ORDERED: HYDR-3965 PO (05:05)
[2021-08-20] MEDS ORDERED: ONDA4TAB6 PO (05:05)
[2021-08-20] MEDS ORDERED: METH4TAB81 PO (05:05)
== END 2021-08-20 05:14 | disposition home or self-care (01) ==
LOC: ER 04:56
DX: K04.7 Periapical abscess without sinus (principal); K02.9 Dental caries, unspecified; K04.1 Necrosis of pulp; R22.0 Localized swelling, mass and lump, head; M19.90 Unspecified osteoarthritis, unspecified site; F12.90 Cannabis use, unspecified, uncomplicated; F15.90 Other stimulant use, unspecified, uncomplicated; Z90.49 Acquired absence of other specified parts of digestive tract; Z98.890 Other specified postprocedural states; Z79.2 Long term (current) use of antibiotics; Z79.899 Other long term (current) drug therapy; Z72.89 Other problems related to lifestyle
CPT/HCPCS: 99283

== ENCOUNTER 2022-08-11 17:49 | Emergency (ER) | payer MEDICAID ==
[~2022-08-11] VITALS: Ht 177.8 cm; Wt 59.0 kg
[~2022-08-11 17:49] MED LIST changes: +METH4TAB81 PO; +ONDA4TAB6 PO
[2022-08-11 18:18] VITALS: BP 118/76
[2022-08-11] MEDS ORDERED: AMOX-580 PO (20:13)
[2022-08-11] MEDS ORDERED: amox tr/potassium clavulanate 875/125mg TAB PO ONE (20:15)
== END 2022-08-11 21:07 | disposition home or self-care (01) ==
LOC: ER 17:49
DX: K08.89 Other specified disorders of teeth and supporting structures (principal); K04.7 Periapical abscess without sinus; M19.90 Unspecified osteoarthritis, unspecified site; F17.200 Nicotine dependence, unspecified, uncomplicated; F12.90 Cannabis use, unspecified, uncomplicated; F15.90 Other stimulant use, unspecified, uncomplicated; Z98.890 Other specified postprocedural states; Z72.89 Other problems related to lifestyle; Z79.2 Long term (current) use of antibiotics; Z79.899 Other long term (current) drug therapy
CPT/HCPCS: 99283

== ENCOUNTER 2023-03-06 21:51 | Emergency (ER) | payer MEDICAID ==
[~2023-03-06] VITALS: Ht 177.8 cm; Wt 59.1 kg
[2023-03-06 21:58] VITALS: BP 141/93
[2023-03-06] MEDS ORDERED: AMOX-117 PO (23:09)
== END 2023-03-06 23:25 | disposition home or self-care (01) ==
LOC: ER 21:51
DX: K02.9 Dental caries, unspecified (principal); K11.20 Sialoadenitis, unspecified; K08.89 Other specified disorders of teeth and supporting structures; M19.90 Unspecified osteoarthritis, unspecified site; F12.90 Cannabis use, unspecified, uncomplicated; F15.90 Other stimulant use, unspecified, uncomplicated; Z90.49 Acquired absence of other specified parts of digestive tract; Z98.890 Other specified postprocedural states; Z79.899 Other long term (current) drug therapy; Z79.2 Long term (current) use of antibiotics
CPT/HCPCS: 99283

== ENCOUNTER 2023-10-28 10:32 | Emergency (ER) | payer MEDICAID ==
[~2023-10-28] VITALS: Ht 172.7 cm; Wt 62.8 kg
[2023-10-28 10:37] VITALS: BP 156/101; PULSE 94; RESP 18; TEMP 97.8; O2SAT 98
[2023-10-28] MEDS ORDERED: DOXY-1 PO (10:50)
[2023-10-28] MEDS ORDERED: NAPR-56 PO (10:50)
== END 2023-10-28 11:02 | disposition home or self-care (01) ==
LOC: ER 10:33
DX: K04.7 Periapical abscess without sinus (principal); F12.90 Cannabis use, unspecified, uncomplicated
CPT/HCPCS: 99283